=== PATIENT | male | born 1980 | race Two or more races ===

== ENCOUNTER 2017-12-01 18:20 | Emergency (ER) | payer MEDICAID ==
[~2017-12-01] VITALS: Ht 175.3 cm; Wt 112.5 kg
[2017-12-01 18:30] VITALS: BP 125/91
[2017-12-01] MEDS ORDERED: cefTRIAXone SOD 1,000 MG VL IM ONE (23:30)
[2017-12-01] MEDS ORDERED: AZITHROMYCIN 250 MG TAB PO ONE (23:30)
== END 2017-12-02 00:09 | disposition home or self-care (01) ==
LOC: ER 18:20
DX: J02.8 Acute pharyngitis due to other specified organisms (principal); B96.89 Other specified bacterial agents as the cause of diseases classified elsewhere
CPT/HCPCS: 96372; 99283; J0696; J7030

== ENCOUNTER 2019-07-07 11:45 | Emergency (ER) | payer MEDICAID ==
[~2019-07-07] VITALS: Ht 175.3 cm; Wt 102.7 kg
[2019-07-07] MEDS ORDERED: TETANUS-DIPTH-ACEL PERTUSSIS 0.5ML SYRG IM ONE (14:45)
[2019-07-07 15:43] VITALS: BP 121/81
== END 2019-07-07 16:22 | disposition home or self-care (01) ==
LOC: ER 11:45
DX: S43.101A Unspecified dislocation of right acromioclavicular joint, initial encounter (principal); W11.XXXA Fall on and from ladder, initial encounter; Y93.89 Activity, other specified; Y92.89 Other specified places as the place of occurrence of the external cause; Y99.8 Other external cause status
CPT/HCPCS: 23650; 73030; 90471; 90715